=== PATIENT | male | born 1955 ===

== ENCOUNTER 2017-05-11 00:41 | Observation (INO) | payer BC ==
[2017-05-11 00:56] VITALS: BMI 25.8
[2017-05-11] MEDS ORDERED: Sodium Chloride 0.9% 1,000 ML IV STA (01:44)
[2017-05-11 01:55] LABS: BASO # 0.2 K/uL (0.0-0.2); BASO % 1.4 % (0.0-2.0); EOS # 0.4 K/uL (0.0-0.7); EOS % 3.7 % (0.0-4.0); HEMATOCRIT 39.7 % (35.0-51.0); LYMPH # 2.6 K/uL (1.0-4.3); MEAN CELL VOLUME 90.5 fl (80.0-94.0); MEAN CORPUSCULAR HEMOGLOBIN 30.2 pg (27.0-31.0); MEAN CORPUSCULAR HGB CONC 33.4 g/dL (33.0-37.0); MONO # 1.4 K/uL (0.0-0.8); NEUT # 6.9 K/uL (1.8-7.0); NEUT % 59.9 % (50.0-75.0); RED CELL DISTRIBUTION WIDTH 13.2 % (11.5-14.5); WHITE BLOOD COUNT 11.5 K/uL (4.8-10.8)
[2017-05-11 02:03] LABS: ALB/GLOB RATIO 1.2 (1.0-2.1); BILIRUBIN,TOTAL 0.5 mg/dl (0.2-1.3)
[2017-05-11 02:04] LABS: CALCIUM 9.6 mg/dL (8.4-10.2)
--- NOTE | 2017-05-11 02:05 | ED PDOC ---
"HPI: Neurologic - General Time Seen by Provider: 05/11/17 01:45 Chief Complaint (Nursing): Dizziness/Lightheaded Chief Complaint (Provider): dizziness - History of Present Illness Associated Symptoms: fatigue, nausea/vomiting, weakness. denies: confusion, fever/chills, insomnia, loss of consciousness, muscle spasms, numbness in legs/ feet, paresthesia, ringing in ears, seizures, sleepy, slurred speech, tingling in legs/feet, trouble walking, vision changes Allergies/Adverse Reactions: Allergies No Known Allergies Allergy (Verified 05/11/17 00:55) Home Medications: Ambulatory Orders No Known Home Med 05/11/17 Additional Complaint(s): 62yo M in ED with HTN (however has not been complaint with BP medication x 2 years) in ED for acute onsent of dizziness, sweating, and vomiting due to dizziness 1hr [employer]. denies: CP, SOB, jaw pain, back pain, episgatric pain, numbness or weakness to arms/legs. denies [id number] injury denies sick contacts denies foreign travel, phx: HT and high cholesterol. Past Medical History Reviewed: Historical Data, Nursing Documentation, Vital Signs Vital Signs: Last Vital Signs Temp 96.3 F L 05/11/17 00:56 Pulse 70 05/11/17 00:56 Resp 18 05/11/17 00:56 BP 203/110 H 05/11/17 00:56 Pulse Ox 100 05/11/17 00:56 - Medical History PMH: HTN, Kidney Stones - Family History Family History: States: No Known Family Hx - Immunization History Hx Tetanus Toxoid Vaccination: No Hx Influenza Vaccination: No Hx Pneumococcal Vaccination: No - Home Medications Home Medications: Ambulatory Orders Medication Instructions Recorded No Known Home Med 05/11/17 - Allergies Allergies/Adverse Reactions: Allergies Allergy/AdvReac Type Severity Reaction Status Date / Time No Known Allergies Allergy Verified 05/11/17 00:55 Review of Systems ROS Statement: Except As Marked, All Systems Reviewed And Found Negative Constitutional: Positive for: Weakness Eyes: Negative for: Vision Change ENT: Negative for: Ear Pain, Ear Discharge, Nose Pain, Nose Discharge Cardiovascular: Positive for: Light Headedness. Negative for: Chest Pain, Palpitations, Orthopnea, Paroxysmal Noc. Dyspnea, Edema Gastrointestinal: Positive for: Nausea, Vomiting Neurological: Positive for: Dizziness. Negative for: Weakness, Numbness, Incoordination, Change in Speech, Confusion, Seizures, Altered Mental Status, Headache Physical Exam - Reviewed Nursing Documentation Reviewed: Yes Vital Signs Reviewed: Yes - Physical Exam Appears: Positive for: Non-toxic, Uncomfortable Head Exam: Positive for: ATRAUMATIC, NORMAL INSPECTION, NORMOCEPHALIC Skin: Positive for: Dry, Diaphoresis, Pallor Eye Exam: Positive for: EOMI, Normal appearance, PERRL ENT: Positive for: Normal ENT Inspection Neck: Positive for: Normal, Painless ROM Cardiovascular/Chest: Positive for: Regular Rate, Rhythm Respiratory: Positive for: CNT, Normal Breath Sounds Gastrointestinal/Abdominal: Positive for: Normal Exam, Bowel Sounds, Soft. Negative for: Tenderness Back: Positive for: Normal Inspection Extremity: Positive for: Normal ROM Neurologic/Psych: Positive for: Alert, Oriented. Negative for: Motor/Sensory Deficits - Laboratory Results Result Diagrams: 05/11/17 01:40 05/11/17 01:40 - ECG ECG Rhythm: Positive for: Normal ST Segment, Sinus Rhythm, ST/T Changes O2 Sat by Pulse Oximetry: 100 - Radiology X-Ray: Interpreted by Me X-Ray Interpretation: No Acute Disease - Progress ED Course And Treament: case discusssed with MD Suzi CT scan r/o ICH EKG/labs(trop/cbc/cmp/ua/chest xray) fluids, meclizine. 05/11/17 05/11/17 01:40 01:40 WBC 11.5 H RBC 4.39 L Hgb 13.3 Hct 39.7 MCV 90.5 MCH 30.2 MCHC 33.4 RDW 13.2 Plt Count 291 MPV 9.0 Neut % (Auto) 59.9 Lymph % (Auto) 23.0 [place] % (Auto) 12.0 H Eos % (Auto) 3.7 Baso % (Auto) 1.4 Neut # 6.9 Lymph # 2.6 [place] # 1.4 H Eos # 0.4 Baso # 0.2 Sodium 142 Potassium 3.0 L Chloride 107 Carbon Dioxide 24 Anion Gap 14 BUN 17 Creatinine 1.5 Est GFR ( Amer) 58 Est GFR (Non-Af Amer) 48 Random Glucose 126 H Calcium 9.6 Total Bilirubin 0.5 AST 31 ALT 37 Alkaline Phosphatase 108 Troponin I Pending Total Protein 8.0 Albumin 4.3 Globulin 3.6 Albumin/Globulin Ratio 1.2 Orders Category Date Time Status HEAD W/O CONTRAST [CT] Stat CT 05/11/17 01:53 Ordered COMP METABOLIC PANEL Stat Chem 05/11/17 01:40 Received TROPONIN I Q8H Chem 05/11/17 02:00 Uncollected TROPONIN I Q8H Chem 05/11/17 10:00 Uncollected TROPONIN I Q8H Chem 05/11/17 18:00 Uncollected TROPONIN I Stat Chem 05/11/17 01:40 Received CHEST TWO VIEWS (PA/LAT) [RAD] Stat Exams 05/11/17 01:53 Ordered CBC (WITH DIFFERENTIAL) Stat MERY 05/11/17 01:40 Received Meclizine [Antivert] Med 05/11/17 01:53 Once 50 mg PO ONCE ONE Ondansetron [Zofran Inj] Med 05/11/17 01:44 Discontinued 4 mg IVP STAT STA Sodium Chloride 0.9% 1,000 ml Med 05/11/17 01:44 Active IV 1,000 mls/hr IV Insertion ([place]) STAT NURSING 05/11/17 01:56 Ordered NIHSS ONCE Pt Care 05/11/17 01:56 Ordered Vital Signs STAT Pt Care 05/11/17 01:56 Ordered URINALYSIS Stat URINALYSIS 05/11/17 01:44 Uncollected Temp Pulse Resp BP Pulse Ox 96.3 F L 70 18 203/110 H 100 05/11/17 00:56 05/11/17 00:56 05/11/17 00:56 05/11/17 00:56 05/11/17 02:11 Medical Decision Making Medical Decision Making: FINDINGS: Brain: There are scattered foci of hypodensity within the cerebral white matter , likely representing small vessel ischemic disease in a patient this age. The acuity of the white matter disease is indeterminate. The white-haywood differentiation is preserved demonstrating no acute territorial type infarct. No acute intracranial hemorrhage is seen. There are calcifications within the globus pallidus bilaterally, which are likely physiologic. Midline shift: There is no midline shift. Ventricles: No ventriculomegaly. Bones/joints: The calvarium demonstrates no evidence for a depressed fracture. Soft tissues: No acute abnormality. Vasculature: There is a tiny hyperdensity involving the left middle cerebral artery, which is likely atherosclerotic or due to thrombus. There is atherosclerotic calcification of the cavernous internal carotid arteries. Sinuses: Unremarkable as visualized. No acute sinusitis. Mastoid air cells: No mastoid effusion. IMPRESSION: ILIANA FRANCO | Preliminary Radiology Report BROOMCORN THRESHER (QA) DISCREPANCY? If there is a discrepancy between the preliminary and final interpretation, please notify [facility] via [email or web address]. If you do not have access to our QA portal, call our QA team at [phone] CONFIDENTIALITY STATEMENT This report is intended only for the use of the referring physician, and only in accordance with law, If you received this in error, call [phone] Page 2 of 2 1. No acute intracranial hemorrhage or acute territorial type infarct. 2. There are scattered foci of hypodensity within the cerebral white matter, likely representing small vessel ischemic disease in a patient this age. 3. There is a tiny hyperdensity involving the left middle cerebral artery, which is likely atherosclerotic or due to thrombus. Correlation with CTA or MRA is recommended. Thank you for allowing us to participate in the care of your patient. Dictated and Authenticated by: Minesh Maher MD 05/11/2017 2:40 AM Eastern Time ([place] & [place]) PT will be admitted to telemetery for dizziness and diaphoresis for further cardiac work up. Disposition - Clinical Impression Clinical Impression: Dizziness - Patient ED Disposition Is Patient to be Admitted: Yes - Disposition Disposition Time: 02:56 Condition: STABLE Forms: [place] (Qatari) - Pt Status Changed To: Hospital Disposition Of: Inpatient - Admit Certification Admit to Inpatient:: After my assessment, the patient will require hospitalization for at least two midnights. This is because of the severity of symptoms shown, intensity of services needed, and/or the medical risk in this patient being treated as an outpatient. - POA Present On Arrival: None"
[2017-05-11 03:55] LABS: TROPONIN I 0.023 ng/mL (0.00-0.120)
[2017-05-11] MEDS ORDERED: K-Lyte 25meq EF Tab PO ONE ×2 (04:23→04:26)
[2017-05-11 07:59] LABS: RBC URINE 1 /hpf (0-3); URINE BILIRUBIN NEGATIVE (NEGATIVE); URINE BLOOD NEGATIVE (NEGATIVE); URINE COLOR STRAW (YELLOW); URINE GLUCOSE (UA) NEG (Normal); URINE KETONE NEGATIVE (NEGATIVE); URINE LEUKOCYTE ESTERASE NEG Leu/uL (Negative); URINE PROTEIN NEGATIVE (NEGATIVE); URINE UROBILINOGEN 0.2-1.0 mg/dL (0.2-1.0); WBC URINE < 1 /hpf (0-5)
--- NOTE | 2017-05-11 08:33 | CP.PCM.CON ---
History of Present Illness - History of Present Illness History of Present Illness: This 61-year-old hypertensive man who knows that he has hypertension for approximately 7 years and had quit taking his antihypertensives medications one year back, has come to the hospital complaining of a sense of lightheadedness followed by an episode of diarrhea followed by severe perspiration and vomiting while having constant sense of lightheadedness particularly aggravated by movements of his head was hospitalized from the emergency room. The patient plays basketball every week and in fact played basketball 2 days back. He is able to do this without any difficulty and denies any episode of chest pain of sudden shortness of breath. His only prior hospitalization was for cholecystectomy 3 years back. He denies any history of diabetes or smoking. There is no significant family history. The patient denies taking any medications other than antihypertensives which he stopped taking as mentioned earlier. He is not aware of any cardiac murmur. On physical examination, this is a middle aged pleasant man was able to lie virtually flat in bed and breathing comfortably and carry on a conversation. His respiratory rate was 14 breast per minute. His heart rate was 64 bpm and regular. His blood pressure was 160/104 mmHg. There was no pedal edema, his jugular venous pressure was not elevated. There were no carotid bruits. His extremities were warm his nailbeds were pink there was no central or peripheral cyanosis. The apex was in the fifth space. His first and second heart sounds were normal. There was an ejection systolic murmur in the left second space in the parasternal area. It was conducted to the base of the neck. There was no S3 gallop. There were no rales. His abdomen was soft his liver and spleen are not palpable. His electrocardiogram showed sinus rhythm at a pattern of left ventricular hypertrophy and attendant ST-T abnormalities. A review of his earlier electrocardiogram of 2013 shows evidence of left ventricular hypertrophy without the ST T changes. His lab data shows, a normal hemoglobin and hematocrit with a BUN/creatinine and creatinine of 17 and 1.5 mg percent respectively. His potassium was 3 mEq per liter and he is troponin levels 2 were normal indicating that there is no evidence of myocyte injury. IMPRESSION: There is no evidence of acute coronary syndrome. His symptoms are strongly suggestive off vestibular dysfunction. Uncontrolled hypertension and possible aortic valve disease. The patient will undergo an echocardiogram to evaluate his aortic valve and possible gradient at this lab. The patient has been started on anti- hypertensive medications. I have instructed him that he must take these regularly. Past Patient History - Past Medical History & Family History Past Medical History?: Yes - Past Social History Smoking Status: Never Smoked - CARDIAC Hx Cardiac Disorders: Yes Hx Hypercholesterolemia: Yes Hx Hypertension: Yes - PULMONARY Hx Respiratory Disorders: No - NEUROLOGICAL Hx Neurological Disorder: No - HEENT Hx HEENT Problems: No - RENAL Hx Kidney Stones: Yes - HEMATOLOGICAL/ONCOLOGICAL Hx Blood Disorders: No - INTEGUMENTARY Hx Dermatological Problems: No - MUSCULOSKELETAL/RHEUMATOLOGICAL Hx Falls: No - GASTROINTESTINAL Hx Gastrointestinal Disorders: No - GENITOURINARY/GYNECOLOGICAL Hx Genitourinary Disorders: No - PSYCHIATRIC Hx Substance Use: No - SURGICAL HISTORY Hx Cholecystectomy: Yes - ANESTHESIA Hx Anesthesia: Yes Hx Anesthesia Reactions: No Meds Allergies/Adverse Reactions: Allergies Allergy/AdvReac Type Severity Reaction Status Date / Time No Known Allergies Allergy Verified 05/11/17 00:55 - Medications Medications: Current Medications Clopidogrel Bisulfate (Plavix) 75 mg PO DAILY [facility] Enoxaparin Sodium (Lovenox) 30 mg SC DAILY [facility] PRN Reason: Protocol Lisinopril (Zestril) 10 mg PO DAILY [facility] Pneumococcal Polyvalent Vaccine (Pneumovax 23 Vaccine) 0.5 ml IM .ONCE ONE Stop: 05/11/17 09:01 Results - Vital Signs Recent Vital Signs: Last Vital Signs Temp 97.7 F 05/11/17 08:00 Pulse 62 05/11/17 08:00 Resp 15 05/11/17 08:00 BP 134/86 05/11/17 08:00 Pulse Ox 98 05/11/17 08:00 - Labs Result Diagrams: 05/11/17 01:40 05/11/17 01:40
[2017-05-11] MEDS ORDERED: Pneumococcal 23-Valent Vaccine IM ONE (09:00)
[2017-05-11] MEDS ORDERED: Enoxaparin 30 mg Syringe SC SCH (09:00)
[2017-05-11 09:27] LABS: T3 UPTAKE 0.86 T3 UPTAK (0.736-1.37); T4 6.4 ug/dl (5.5-11.0)
[2017-05-11 09:41] LABS: THYROID STIMULATING HORMONE 1.03 mIU/ML (0.46-4.68)
--- NOTE | 2017-05-11 09:49 | CT ---
PROCEDURE: CT HEAD WITHOUT CONTRAST. HISTORY: dizziness COMPARISON: None available. TECHNIQUE: Axial computed tomography images were obtained through the head/brain without intravenous contrast. Radiation dose: Total exam DLP = 836.96 mGy-cm. This CT exam was performed using one or more of the following dose reduction techniques: Automated exposure control, adjustment of the mA and/or kV according to patient size, and/or use of iterative reconstruction technique. FINDINGS: HEMORRHAGE: No intracranial hemorrhage. BRAIN: No mass effect or edema. No significant atrophy. Mild periventricular white matter lucency with patchy deep and subcortical white matter lucency consistent with age related microvascular ischemic change. No evidence of acute infarct. VENTRICLES: Unremarkable. No hydrocephalus. CALVARIUM: Unremarkable. PARANASAL SINUSES: Unremarkable as visualized. No significant inflammatory changes. MASTOID AIR CELLS: Unremarkable as visualized. No inflammatory changes. OTHER FINDINGS: None. IMPRESSION: No intracranial mass, hemorrhage or evidence of acute infarct. Mild chronic microvascular ischemic change. Please note that mention was made in the preliminary report of a tiny hyperdensity in the left middle cerebral artery. This is likely referring to a focal calcification in the left middle cerebral artery. No further evaluation is felt to be warranted at the bases of this examination. Otherwise unremarkable examination. Preliminary interpretation of this examination was reported by [employer] at 2:40 a.m. on 05/11/2017. There is discordance of this report with the preliminary interpretation regarding the need for further evaluation with MRA or CTA. .
--- NOTE | 2017-05-11 10:55 | MRI ---
PROCEDURE: MRI BRAIN WITHOUT CONTRAST HISTORY: Dizziness COMPARISON: Noncontrast head CT on 05/11/2017. TECHNIQUE: Multiplanar, multisequence MR images of the brain were obtained without intravenous contrast enhancement. FINDINGS: HEMORRHAGE: None DWI: There is a small focus of restricted diffusion in the left centrum semiovale with corresponding increased T2/FLAIR signal. BRAIN PARENCHYMA: There are multifocal T2/FLAIR hyperintense lesion in the subcortical and deep supratentorial white matter. There is no mass, mass effect or abnormal extra-axial fluid collection. The midline sagittal structures are normal. VENTRICLES: There is mild age-related global parenchymal volume loss and proportionate enlargement of the ventricles and cortical sulci. CRANIUM: There is normal bone marrow signal pattern. ORBITS: Grossly unremarkable. PARANASAL SINUSES/MASTOIDS: There is mild polypoid mucosal thickening in the maxillary sinuses. The remaining included paranasal sinuses are predominantly clear. The mastoid air cells are predominantly clear. VASCULAR SYSTEM: There are normal signal voids in the larger intracranial arteries. OTHER FINDINGS: None. IMPRESSION: 1. Small focus of acute ischemia/demyelination in the left centrum semiovale. 2. Multifocal subcortical supratentorial white matter lesions are strictly nonspecific, the differential considerations include chronic microangiopathic changes, demyelinating disease including multiple sclerosis, vasculitis, Lyme disease, migraine headache effect and gliosis. Clinical correlation and follow-up is advised. 3. Mild age-related global parenchymal volume loss.
--- NOTE | 2017-05-11 11:00 | MRI ---
PROCEDURE: Magnetic Resonance Angiography Brain HISTORY: VASCULITIS COMPARISON: None available. TECHNIQUE: 3D time of flight MR angiography of the intracranial arteries was performed. Rotating maximum intensity projection images were generated. FINDINGS: INTERNAL CEREBRAL ARTERIES: Normal in caliber. The skull base, petrous, cavernous and supraclinoid segments are bilaterally widely patient. ANTERIOR CEREBRAL ARTERIES: Normal in caliber. The left A1 segment is aplastic, an anatomic variant. The right A1 And A2 segments are widely patent. Smaller distal branches unremarkable, as visualized. MIDDLE CEREBRAL ARTERIES: Normal in caliber. M1 and M2 segments are widely patent. Perisylvian branches grossly symmetric. POSTERIOR CIRCULATION: Basilar Artery: Normal in caliber. Distal Vertebral Arteries: Normal in caliber. Posterior Cerebral Arteries: Normal in caliber. There is origin of the left posterior cerebral artery. Posterior Inferior Cerebellar Arteries: Normal in caliber. ANEURYSM/ VASCULAR MALFORMATIONS: None. OTHER FINDINGS: None. IMPRESSION: No definite evidence of irregularity, narrowing or occlusion in of intracranial arteries. Essentially normal MRA of the head.
[2017-05-11] MEDS: Enoxaparin 40 mg Syringe SC SCH (11:14)
--- NOTE | 2017-05-11 11:16 | RAD ---
HISTORY: cough COMPARISON: No prior. TECHNIQUE: Chest PA and lateral FINDINGS: LUNGS: No active pulmonary disease. PLEURA: No significant pleural effusion identified. No pneumothorax apparent. CARDIOVASCULAR: Normal. OSSEOUS STRUCTURES: No significant abnormalities. VISUALIZED UPPER ABDOMEN: Normal. OTHER FINDINGS: None. IMPRESSION: No active disease. No preliminary report provided by emergency department personnel.
[2017-05-11] MEDS: Potassium Chloride 20 mEq ER Tab PO SCH (12:39)
--- NOTE | 2017-05-11 14:31 | CP.PCM.HP ---
<Shruthi Gan - Last Filed: 05/11/17 14:35> History of Present Illness - History of Present Illness History of Present Illness: 61 y/o with PMHx of HTN for approximately 7 years and had quit taking his antihypertensives medications one year back, has come to the hospital complaining of a sense of lightheadedness followed by an episode of diarrhea followed by severe perspiration and vomiting while having constant sense of lightheadedness particularly aggravated by movements of his head was hospitalized from the emergency room. Present on Admission - Present on Admission Any Indicators Present on Admission: No History of DVT/PE: No History of Uncontrolled Diabetes: No Urinary Catheter: No Decubitus Ulcer Present: No Review of Systems - Constitutional Constitutional: As Per HPI Past Patient History - Past Medical History & Family History Past Medical History?: Yes - Past Social History Smoking Status: Never Smoked - CARDIAC Hx Cardiac Disorders: Yes Hx Hypercholesterolemia: Yes Hx Hypertension: Yes - PULMONARY Hx Respiratory Disorders: No - NEUROLOGICAL Hx Neurological Disorder: No - HEENT Hx HEENT Problems: No - RENAL Hx Kidney Stones: Yes - HEMATOLOGICAL/ONCOLOGICAL Hx Blood Disorders: No - INTEGUMENTARY Hx Dermatological Problems: No - MUSCULOSKELETAL/RHEUMATOLOGICAL Hx Falls: No - GASTROINTESTINAL Hx Gastrointestinal Disorders: No - GENITOURINARY/GYNECOLOGICAL Hx Genitourinary Disorders: No - PSYCHIATRIC Hx Substance Use: No - SURGICAL HISTORY Hx Cholecystectomy: Yes - ANESTHESIA Hx Anesthesia: Yes Hx Anesthesia Reactions: No Meds Allergies/Adverse Reactions: Allergies Allergy/AdvReac Type Severity Reaction Status Date / Time No Known Allergies Allergy Verified 05/11/17 00:55 Physical Exam - Constitutional Appears: No Acute Distress - Head Exam Head Exam: NORMAL INSPECTION - Eye Exam Eye Exam: Normal appearance - ENT Exam ENT Exam: Mucous Membranes Moist - Respiratory Exam Respiratory Exam: Clear to Auscultation Bilateral - Cardiovascular Exam Cardiovascular Exam: REGULAR RHYTHM, +S1, +S2 - GI/Abdominal Exam GI & Abdominal Exam: Normal Bowel Sounds, Soft. absent: Distended, Guarding, Rigid, Tenderness - Extremities Exam Extremities exam: Positive for: normal inspection. Negative for: calf tenderness, pedal edema - Neurological Exam Neurological exam: Alert, Oriented x3 - Skin Skin Exam: Dry, Intact, Normal Color Results - Vital Signs Recent Vital Signs: Last Vital Signs Temp 98.6 F 05/11/17 12:00 Pulse 61 05/11/17 12:00 Resp 10 L 05/11/17 12:00 BP 122/77 05/11/17 12:00 Pulse Ox 95 05/11/17 12:00 - Labs Result Diagrams: 05/11/17 01:40 05/11/17 01:40 Labs: Laboratory Results - last 24 hr 05/11/17 05/11/17 05/11/17 07:04 08:30 08:30 ESR Hemoglobin A1c 5.7 Troponin I Triglycerides 125 Cholesterol 213 H LDL Cholesterol Direct 135 H HDL Cholesterol 38 Thyroxine (T4) 6.40 T3 Uptake 0.86 TSH 3rd Generation 1.03 Urine Color Straw Urine Clarity Clear Urine pH 6.0 Ur Specific [place] 1.013 Urine Protein Negative Urine Glucose (UA) Neg Urine Ketones Negative Urine Blood Negative Urine Nitrate Negative Urine Bilirubin Negative Urine Urobilinogen 0.2-1.0 Ur Leukocyte Esterase Neg Urine RBC (Auto) 1 Urine Microscopic WBC < 1 05/11/17 05/11/17 08:30 10:30 ESR 32 H Hemoglobin A1c Troponin I < 0.0120 Triglycerides Cholesterol LDL Cholesterol Direct HDL Cholesterol Thyroxine (T4) T3 Uptake TSH 3rd Generation Urine Color Urine Clarity Urine pH Ur Specific [place] Urine Protein Urine Glucose (UA) Urine Ketones Urine Blood Urine Nitrate Urine Bilirubin Urine Urobilinogen Ur Leukocyte Esterase Urine RBC (Auto) Urine Microscopic WBC Assessment & Plan - Assessment and Plan (Free Text) Assessment: 61 y/o M with PMHx of HTN admitted to telemetry for dizziness and diaphoresis for further cardiac work up. Plan: Dizziness -F/u Troponin I -f/u Brain MRI -f/u echo due to new heart murmur -f/u carotid US -F/U cardiology recommendations -f/u Neurology recommendations -Head CT w/o contrast showed no evidence of intracraneal hemorrhage, mass or acute infarct Hypertension uncontrolled Increased lisinopril to 20 mg daily PO Hypokalemia POtassium replacement Potassium Chl 20 meq PO daily Hyperlipidemia -start lipitor 20 mg daily PO DVT prophylaxis lovenox 40 meq SC daily - Date & Time Date: 05/11/17 Time: 08:00 <Brendon Garcia - Last Filed: 05/12/17 09:56> Results - Vital Signs Recent Vital Signs: Last Vital Signs Temp 98.3 F 05/12/17 00:00 Pulse 68 05/12/17 08:39 Resp 15 05/12/17 04:17 BP 154/92 H 05/12/17 08:39 Pulse Ox 96 05/12/17 04:17 - Labs Result Diagrams: 05/11/17 01:40 05/12/17 04:45 Labs: Laboratory Results - last 24 hr 05/11/17 05/11/17 05/11/17 08:30 08:30 08:30 Sodium Potassium Chloride Carbon Dioxide Anion Gap BUN Creatinine Est GFR ( Amer) Est GFR (Non-Af Amer) Random Glucose Hemoglobin A1c 5.7 Calcium Total Bilirubin AST ALT Alkaline Phosphatase Troponin I C-React Prot High Sens 4.80 H Total Protein Albumin Globulin Albumin/Globulin Ratio Homocysteine RPR Nonreactive 05/11/17 05/11/17 05/11/17 08:30 10:30 18:30 Sodium Potassium Chloride Carbon Dioxide Anion Gap BUN Creatinine Est GFR ( Amer) Est GFR (Non-Af Amer) Random Glucose Hemoglobin A1c Calcium Total Bilirubin AST ALT Alkaline Phosphatase Troponin I < 0.0120 < 0.0120 C-React Prot High Sens Total Protein Albumin Globulin Albumin/Globulin Ratio Homocysteine 20.5 H RPR 05/12/17 04:45 Sodium 140 Potassium 3.7 Chloride 107 Carbon Dioxide 25 Anion Gap 12 BUN 19 Creatinine 1.5 Est GFR ( Amer) 58 Est GFR (Non-Af Amer) 48 Random Glucose 97 Hemoglobin A1c Calcium 9.0 Total Bilirubin 0.5 AST 21 ALT 39 Alkaline Phosphatase 82 Troponin I C-React Prot High Sens Total Protein 6.8 Albumin 3.8 Globulin 3.0 Albumin/Globulin Ratio 1.2 Homocysteine RPR Assessment & Plan - Assessment and Plan (Free Text) Plan: I was present during evaluation and discussed with Dr Gan re plans of care and mgt. Brendon Garcia M.D.
[2017-05-12 00:18] VITALS: TEMP 98.3
--- NOTE | 2017-05-12 03:11 | CON ---
DATE: 05/11/2017 REASON FOR THE CONSULTATION: Dizziness. CHIEF COMPLAINT: The patient was brought in to [facility] because of following dinner in the bed, abrupt onset of dizziness and losing balance. Symptoms were persistent. They decided to bring him to the hospital for further evaluation. 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 He took dinner yesterday normal around 10:30 while he was in the bed, abrupt onset of vertigo. He was not able to get up and walk, but he felt loosing his balance. Symptom was persistent. He decided to come to the hospital. Immediately, his called Mak, on his way to the hospital, he vomited outside the street, semiautomatic stitcher operator stopped the car, and he was transferred to [facility] for further management. No similar episodes happened in the past. No association with headache, visual or bulbar dysfunction. He denies any focal weakness. However, the symptoms are almost resolved, still he feels some tiredness. PAST MEDICAL HISTORY: Unremarkable. PERSONAL HISTORY: Denies smoking and alcohol use. REVIEW OF SYSTEMS: A 12-point system has been reviewed and agreed with documentation except new symptoms associating with dizziness and losing balance from neurological point of view. MEDICATION: Lipitor, Lovenox, Microzide, Norvasc, Zestril, and Plavix was added by me this morning. PHYSICAL EXAMINATION VITAL SIGNS: Blood pressure 112/76, mean arterial pressure of 88, respiratory rate 16, temperature afebrile. NECK: Supple. No carotid bruits. HEART: Sounds regular. CHEST: Fair air entry. EXTREMITIES: No edema in legs. NEUROLOGICAL EXAMINATION: Mental status exam: He is awake, alert, and oriented to person, place, and time. Speech is clear. Naming, repetition, fluency, comprehension all within normal. CRANIAL NERVE EXAMINATION: Visual field intact. Pupil reactive to light. Extraocular movement normal. No nystagmus. No facial or sensory deficit. No facial asymmetry. Hearing is normal. Tongue is midline. Good gag. MOTOR EXAMINATION: Outstretched hand with eyes closed, no drift is noted. Probably symmetric on either side. DEEP TENDON REFLEXES: Biceps, brachioradialis, and triceps are 2+. Both knees are 2+. Both ankles are 1+. Plantars are downgoing. SENSORY EXAMINATION: Grossly intact. Gait is normal. He was able to march in one place. Romberg's are negative. CONCLUSION: Upon reviewing his history and neurological examination, the patient has been presenting with abrupt onset of dizziness with losing balance, raised the possibility of vertebrobasilar insufficiency manifesting with transient ischemic attack versus vestibular neuronitis. WORKUP: MRI of the brain showed periventricular ischemic changes. MR angiogram. No vasculitis. CAT scan showed some increased signal in arterial segment. However, no parenchymal lesion in the CAT scan. BLOOD WORKUP: WBC 11.5, hemoglobin 13.3, hematocrit 39.7, platelet 291. Sodium 142, potassium 3.2, chloride 107, bicarbonate 24, BUN 17, GFR 58. Glucose 126. Hemoglobin A1c 5.7. C-reactive protein 4.80. Cholesterol 213, LDL 135. TSH 1.03. Urine normal. RPR nonreactive. RECOMMENDATIONS: Let him continue Plavix for stroke prophylaxis. Let him continue hydrochlorothiazide, Norvasc, and Zestril. He is also agreeable to take the medication with Lipitor which was given this morning. From neurological point of view, he is stable. However, he is on the telemetry. Cardiology should be following him and clear him for discharge. Patient will be followed by me as outpatient. All presenting complaints and working diagnoses have been discussed with him. Patient is aware of his medical problem. Jaquan Young MD
[2017-05-12 04:17] VITALS: RESP 15; O2SAT 96
[2017-05-12 05:41] LABS: ALB/GLOB RATIO 1.2 (1.0-2.1); BILIRUBIN,TOTAL 0.5 mg/dl (0.2-1.3); POTASSIUM 3.7 MMOL/L (3.6-5.0); TOTAL PROTEIN 6.8 G/DL (6.3-8.2)
[2017-05-12 06:57] LABS: HOMOCYSTEINE 20.5 umol/L (<11.4)
[2017-05-12] MEDS: Enoxaparin 40 mg Syringe SC SCH (08:38)
[2017-05-12] MEDS: Potassium Chloride 20 mEq ER Tab PO SCH (08:38)
[2017-05-12 08:39] VITALS: BP 154/92; PULSE 68
--- NOTE | 2017-05-12 09:23 | CP.PCM.PN ---
Subjective - Date & Time of Evaluation Date of Evaluation: 05/12/17 Time of Evaluation: 09:00 - Subjective Subjective: No symptoms, slept well , no dizziness BP 146/90 mm Hg HR 76 BPM Echo images reviewed LVH+ with preserved LV wall motion pattern AO valve sclerosis with mild gradient Stable from cardiac point of view Spoke with pt and his at length re need for regular BP checks and BP meds Objective - Vital Signs/Intake and Output Vital Signs (last 24 hours): Temp Pulse Resp BP Pulse Ox 98.3 F 68 15 154/92 H 96 05/12/17 00:00 05/12/17 08:39 05/12/17 04:17 05/12/17 08:39 05/12/17 04:17 Intake and Output: 05/12/17 05/12/17 06:59 18:59 Intake Total 250 Balance 250 - Medications Medications: Current Medications Amlodipine Besylate (Norvasc) 10 mg PO DAILY FOR[facility]LY [facility], [facility]1983 Last Admin: 05/12/17 08:39 Dose: 10 mg Atorvastatin Calcium (Lipitor) 20 mg PO DAILY [facility], [facility] Last Admin: 05/12/17 08:38 Dose: 20 mg Clopidogrel Bisulfate (Plavix) 75 mg PO DAILY [facility], [facility]1983 Last Admin: 05/12/17 08:39 Dose: 75 mg Enoxaparin Sodium (Lovenox) 40 mg SC DAILY [facility], [facility]1983 PRN Reason: Protocol Last Admin: 05/12/17 08:38 Dose: 40 mg Hydrochlorothiazide (Microzide) 12.5 mg PO DAILY [facility], [facility] Last Admin: 05/12/17 08:38 Dose: 12.5 mg Lisinopril (Zestril) 20 mg PO DAILY [facility] Last Admin: 05/12/17 08:39 Dose: 20 mg Potassium Chloride (K-Dur 20 Meq Er Tab) 20 meq PO DAILY [facility], [facility] Last Admin: 05/12/17 08:38 Dose: 20 meq - Labs Labs: 05/12/17 04:45
--- NOTE | 2017-05-12 10:03 | CP.PCM.DIS ---
Provider - Provider Date of Admission: 05/11/17 03:00 Attending physician: Brendon Garcia MD Primary care physician: Jon Stewart MD Time Spent in preparation of Discharge (in minutes): 30 Diagnosis - Discharge Diagnosis (1) Hypertension Status: Acute Priority: High Comment: Uncontrolled. Patient will f/u with Dr. Garcia as outpatient next wednesday. Lisinopril increased to 40 mg PO daily. HCTZ D/C due to hypokalemia. (2) Hypercholesteremia Status: Acute Priority: Medium Comment: started on Atorvastatin 20 mg PO daily. F/u with PMD as outpatient Hospital Course - Lab Results Lab Results: Most Recent Lab Values WBC 11.5 K/uL (4.8-10.8) H 05/11/17 01:40 RBC 4.39 Mil/uL (4.40-5.90) L 05/11/17 01:40 Hgb 13.3 g/dL (12.0-18.0) 05/11/17 01:40 Hct 39.7 % (35.0-51.0) 05/11/17 01:40 MCV 90.5 fl (80.0-94.0) 05/11/17 01:40 MCH 30.2 pg (27.0-31.0) 05/11/17 01:40 MCHC 33.4 g/dL (33.0-37.0) 05/11/17 01:40 RDW 13.2 % (11.5-14.5) 05/11/17 01:40 Plt Count 291 K/uL (130-400) 05/11/17 01:40 MPV 9.0 fl (7.2-11.7) 05/11/17 01:40 Neut % (Auto) 59.9 % (50.0-75.0) 05/11/17 01:40 Lymph % (Auto) 23.0 % (20.0-40.0) 05/11/17 01:40 Nuckolls % (Auto) 12.0 % (0.0-10.0) H 05/11/17 01:40 Eos % (Auto) 3.7 % (0.0-4.0) 05/11/17 01:40 Baso % (Auto) 1.4 % (0.0-2.0) 05/11/17 01:40 Neut # 6.9 K/uL (1.8-7.0) 05/11/17 01:40 Lymph # 2.6 K/uL (1.0-4.3) 05/11/17 01:40 Nuckolls # 1.4 K/uL (0.0-0.8) H 05/11/17 01:40 Eos # 0.4 K/uL (0.0-0.7) 05/11/17 01:40 Baso # 0.2 K/uL (0.0-0.2) 05/11/17 01:40 ESR 32 mm/hr (0-20) H 05/11/17 08:30 Sodium 140 mmol/l (132-148) 05/12/17 04:45 Potassium 3.7 MMOL/L (3.6-5.0) 05/12/17 04:45 Chloride 107 mmol/L (98-107) 05/12/17 04:45 Carbon Dioxide 25 mmol/L (22-30) 05/12/17 04:45 Anion Gap 12 (10-20) 05/12/17 04:45 BUN 19 mg/dl (9-20) 05/12/17 04:45 Creatinine 1.5 mg/dL (0.8-1.5) 05/12/17 04:45 Est GFR ( Amer) 58 05/12/17 04:45 Est GFR (Non-Af Amer) 48 05/12/17 04:45 Random Glucose 97 mg/dL (75-110) 05/12/17 04:45 Hemoglobin A1c 5.7 % (4.2-6.5) 05/11/17 08:30 Calcium 9.0 mg/dL (8.4-10.2) 05/12/17 04:45 Total Bilirubin 0.5 mg/dl (0.2-1.3) 05/12/17 04:45 AST 21 U/L (17-59) 05/12/17 04:45 ALT 39 U/L (21-72) 05/12/17 04:45 Alkaline Phosphatase 82 U/L (38-126) 05/12/17 04:45 Troponin I < 0.0120 ng/mL (0.00-0.120) 05/11/17 18:30 C-React Prot High Sens 4.80 mg/L (1.00-3.00) H 05/11/17 08:30 Total Protein 6.8 G/DL (6.3-8.2) 05/12/17 04:45 Albumin 3.8 g/dL (3.5-5.0) 05/12/17 04:45 Globulin 3.0 gm/dL (2.2-3.9) 05/12/17 04:45 Albumin/Globulin Ratio 1.2 (1.0-2.1) 05/12/17 04:45 Triglycerides 125 mg/DL (0-149) 05/11/17 08:30 Cholesterol 213 mg/dL (0-199) H 05/11/17 08:30 LDL Cholesterol Direct 135 mg/dL (0-129) H 05/11/17 08:30 HDL Cholesterol 38 MG/DL (30-70) 05/11/17 08:30 Homocysteine 20.5 umol/L ( <11.4) H 05/11/17 08:30 Thyroxine (T4) 6.40 ug/dl (5.5-11.0) 05/11/17 08:30 T3 Uptake 0.86 T3 UPTAK (0.736-1.37) 05/11/17 08:30 TSH 3rd Generation 1.03 mIU/ML (0.46-4.68) 05/11/17 08:30 Urine Color Straw (YELLOW) 05/11/17 07:04 Urine Clarity Clear (Clear) 05/11/17 07:04 Urine pH 6.0 (5.0-8.0) 05/11/17 07:04 Ur Specific [place] 1.013 (1.003-1.030) 05/11/17 07:04 Urine Protein Negative mg/dL (NEGATIVE) 05/11/17 07:04 Urine Glucose (UA) Neg mg/dL (Normal) 05/11/17 07:04 Urine Ketones Negative mg/dL (NEGATIVE) 05/11/17 07:04 Urine Blood Negative (NEGATIVE) 05/11/17 07:04 Urine Nitrate Negative (NEGATIVE) 05/11/17 07:04 Urine Bilirubin Negative (NEGATIVE) 05/11/17 07:04 Urine Urobilinogen 0.2-1.0 mg/dL (0.2-1.0) 05/11/17 07:04 Ur Leukocyte Esterase Neg Gustavo/uL (Negative) 05/11/17 07:04 Urine RBC (Auto) 1 /hpf (0-3) 05/11/17 07:04 Urine Microscopic WBC < 1 /hpf (0-5) 05/11/17 07:04 RPR Nonreactive (NONREACTIVE) 05/11/17 08:30 - Hospital Course Hospital Course: 61 y/o with PMHx of HTN, but poor compliance with home medications, presented to ED c/o dizziness and diaphoresis , admitted to telemetry for cardiac work up. During admission patient was seen by cardiology and neurology.As per Cardiology there was no evidence of acute coronary syndrome. Neurology cleared patient to be discharge home and f/u as outpatient. Patient's medications were adjusted during inpatient for management of uncontrolled Hypertension. Patient will f/u with Dr. Garcia as outpatient. Atorvastatin was started during this admission. - Date & Time of H&P Date of H&P: 05/11/17 Time of H&P: 14:30 Discharge Exam - Head Exam Head Exam: NORMAL INSPECTION - Eye Exam Eye Exam: Normal appearance - ENT Exam ENT Exam: Mucous Membranes Moist - Respiratory Exam Respiratory Exam: Clear to PA & Lateral, NORMAL BREATHING PATTERN - Cardiovascular Exam Cardiovascular Exam: REGULAR RHYTHM, +S1, +S2 - GI/Abdominal Exam GI & Abdominal Exam: Normal Bowel Sounds, Soft. absent: Distended, Guarding, Rigid, Tenderness - Extremities Exam Extremities exam: normal inspection Additional comments: no calf tenderness, no pedal edema noted - Neurological Exam Neurological exam: Alert, Oriented x3 - Psychiatric Exam Psychiatric exam: Normal Affect, Normal Mood - Skin Skin Exam: Dry, Intact, Normal Color Discharge Plan - Discharge Medications Prescriptions: amLODIPine [Norvasc] 10 mg PO DAILY #30 tab Atorvastatin [Lipitor] 20 mg PO DAILY #30 tab Clopidogrel [Plavix] 75 mg PO DAILY #30 tab Lisinopril [Zestril] 40 mg PO DAILY #30 tab - Follow Up Plan Condition: STABLE Disposition: HOME/ ROUTINE Instructions: Hypertension (DC), Hypertension (GEN) Referrals: Jon Stewart MD [Primary Care Provider] -
--- NOTE | 2017-05-12 11:00 | CARD ---
APPROVED REPORT EXAM: Two-dimensional and M-mode echocardiogram with Doppler and color Doppler. Other Information Quality : GoodRhythm : NSR INDICATION Murmur 2D DIMENSIONS IVSd1.61 (0.7-1.1cm)LVDd4.76 (3.9-5.9cm) LVOT Diameter2.54 (1.8-2.4cm)PWd1.03 (0.7-1.1cm) IVSs1.61 (0.8-1.2cm)LVDs3.25 (2.5-4.0cm) FS (%) 31.8 %PWs1.60 (0.8-1.2cm) M-Mode DIMENSIONS Left Atrium (MM)4.26 (2.5-4.0cm)IVSd1.47 (0.7-1.1cm) Aortic Root4.06 (2.2-3.7cm)LVDd5.26 (4.0-5.6cm) Aortic Cusp Exc.1.29 (1.5-2.0cm)PWd1.59 (0.7-1.1cm) IVSs1.91 cmFS (%) 34 % LVDs3.47 (2.0-3.8cm)PWs1.91 cm Aortic Valve AoV Peak Ijhckawb568.7cm/sAoV VTI50.9cmAO Peak GR.22mmHg LVOT Peak Gjxogotg56.6cm/sLVOT VTI19.96cmAO Mean GR.13mmHg ROBINSON (VMAX)1.94nz6WSA (VTI)1.04cm2 Mitral Valve MV E Byroqdtm93.8cm/sMV DECEL [id number] A Eweepzrh53.0cm/s MV TLF65luJ/A ratio0.9MVA (PHT)3.27cm2 TDI Lateral E' Peak V8.15cm/sMedial E' Peak V5.13cm/sE/Lateral E'8.3 E/Medial E'13.2 Pulmonary Valve PV Peak Oywqfper66.4cm/s Tricuspid Valve TR Peak Cpdlsigd782mj/sRAP [id number] Peak Gr.10mmHg [id number] LEFT VENTRICLE The left ventricle is normal size. There is mild to moderate asymmetric left ventricular hypertrophy. The left ventricular function is normal. The left ventricular ejection fraction is 55% There is normal LV segmental wall motion. Tissue Doppler imaging reveals abnormal left ventricular diastolic dysfunction. Transmitral Doppler flow pattern is Grade I-abnormal relaxation pattern. No left ventricle thrombus noted on this study. There is no ventricular septal defect visualized. There is no left ventricular aneurysm. There is no mass noted in the left ventricle. RIGHT VENTRICLE The right ventricle is normal size. There is normal right ventricular wall thickness. The right ventricular systolic function is normal. ATRIA The left atrium size is normal. The right atrium size is normal. The interatrial septum is intact with no evidence for an atrial septal defect. AORTIC VALVE The aortic valve is moderately calcified. There is trace aortic regurgitation. There is mild valvular aortic stenosis. Calculated aortic valve area is 1.3 cm2 with maximum pressure gradient of 23 mmHg and mean pressure gradient of 15 mmHg. There is no aortic valvular vegetation. MITRAL VALVE The mitral valve is normal in structure and function. There is no evidence of mitral valve prolapse. There is no mitral valve stenosis. There is no mitral valve regurgitation noted. TRICUSPID VALVE The tricuspid valve is normal in structure and function. There is no tricuspid valve regurgitation noted. There is no tricuspid valve prolapse or vegetation. There is no tricuspid valve stenosis. PULMONIC VALVE The pulmonary valve is normal in structure and function. There is no pulmonic valvular regurgitation. There is no pulmonic valvular stenosis. GREAT VESSELS The aortic root is normal in size. The ascending aorta is normal in size. The IVC is normal in size and collapses >50% with inspiration. PERICARDIAL EFFUSION The pericardium appears normal. There is no pleural effusion. <Conclusion> Normal LV systolic function Mild Aortic Stenosis ROBINSON 1.3 cm2
--- NOTE | 2017-05-12 15:21 | US ---
PROCEDURE: Duplex ultrasound of the carotid and vertebral arteries. HISTORY: assess stenosis COMPARISON: None available. TECHNIQUE: Grayscale and duplex Doppler evaluation of the cervical carotid and vertebral arteries were performed. The common carotid, carotid bifurcations and cervical ICA and proximal ECA were evaluated. The vertebral arteries were evaluated for gross patency and direction. FINDINGS: RIGHT CAROTID ARTERIES: Common Carotid Artery: Moderate plaque formation noncalcified and heterogeneous Maximal flow velocity of 107.7 cm/s. Carotid Bifurcation: Heterogeneous plaque formation. Internal Carotid Artery:Heterogeneous plaque formation. Maximal flow velocity of 65.1 cm/s. External Carotid Artery (proximal branches): Normal. Maximal flow velocity of 88.6 cm/s. ICA/CCA Ratio: 0.6 LEFT CAROTID ARTERIES: Common Carotid Artery: Maximal flow velocity of 153.0 cm/s. Carotid Bifurcation: Heterogeneous plaque formation. Internal Carotid Artery:Heterogeneous plaque formation. Maximal flow velocity of 54.9 cm/s. External Carotid Artery (proximal branches): Normal. Maximal flow velocity of 89.2 cm/s. ICA/CCA Ratio: 0.4 VERTEBRAL ARTERIES: Right Vertebral Artery: Patent. Antegrade flow. Left Vertebral Artery: Patent. Antegrade flow. OTHER FINDINGS: Isoechoic solid nodule right thyroid lobe. This measures approximately 10 mm. IMPRESSION: Right ICA degree of stenosis: Less than 50% Left ICA degree of stenosis: Less than 50% Reference Internal Carotid Artery (ICA) Peak Systolic Velocity (PSV) for above: 1. Less than 50% stenosis less than 125 cm/s peak systolic velocity 2. 50-69% stenosis 125-230cm/s peak systolic velocity 3. Greater than 70% but less than near occlusion greater than 230 cm/s peak systolic velocity Incidental finding(s): Approximately 1 cm solid nodule right thyroid lobe. Elective followup recommended.
== END 2017-05-12 10:51 | disposition home or self-care (01) ==
LOC: H.ER 00:41 → INTOOBSV 03:00 → H.ERHOLD 03:00 → H.ICU/CCU 05:31
PROVIDERS: ADMIT Family Medicine; ATTEND Family Medicine
PROC: 3E0234Z Introduction of Serum, Toxoid and Vaccine into Muscle, Percutaneous Approach (ICD-10-PCS; principal; 2017-05-11)
DX: I10 Essential (primary) hypertension (principal); E78.5 Hyperlipidemia, unspecified; E87.6 Hypokalemia; E78.00 Pure hypercholesterolemia, unspecified; Z23 Encounter for immunization; Z91.14 Patient's other noncompliance with medication regimen
CPT/HCPCS: 70450; 70544; 70551; 71020; 80053; 80061; 81003; 83036; 83090; 84436; 84443; 84479; 84484; 85025; 85651; 86140; 86592; 87081; 90732; 93306; 93880; 96361; 96374; 99285; G0009; G0378; J1650; J2405; J7040